=== PATIENT | male | born 1955 ===

== ENCOUNTER → 2025-01-19 10:07 | Outpatient (BNVA) | payer MEDICARE, SELFPAY | PROVIDERS: Visit Provider Student in an Organized Health Care Education/Training Program | DX: M25.561 Pain in right knee (principal); M25.562 Pain in left knee; M17.0 Bilateral primary osteoarthritis of knee; Z46.89 Encounter for fitting and adjustment of other specified devices; M17.11 Unilateral primary osteoarthritis, right knee | CPT/HCPCS: 73560; 73565 ==

== ENCOUNTER 2025-01-19 11:59 | Outpatient (CLI) | payer MEDICARE, SELFPAY | END 2025-01-19 12:00 | disposition home or self-care (01) | LOC: SPT 11:59 | PROVIDERS: Visit Provider Student in an Organized Health Care Education/Training Program | DX: Z46.89 Encounter for fitting and adjustment of other specified devices (principal); M17.11 Unilateral primary osteoarthritis, right knee | CPT/HCPCS: L1851 ==

== ENCOUNTER → 2025-02-02 13:01 | Outpatient (BNVA) | payer MEDICARE, SELFPAY | PROVIDERS: Visit Provider Physician Assistant | DX: M17.0 Bilateral primary osteoarthritis of knee (principal); M25.569 Pain in unspecified knee; Z71.89 Other specified counseling | CPT/HCPCS: 20610; 99213; J7318 ==

== ENCOUNTER → 2025-05-11 13:59 | Outpatient (BNVA) | payer MEDICARE, SELFPAY | PROVIDERS: Visit Provider Student in an Organized Health Care Education/Training Program | DX: M17.0 Bilateral primary osteoarthritis of knee (principal) | CPT/HCPCS: 99214 ==